=== PATIENT | female | born 1995 | race Caucasian/White ===

== ENCOUNTER → 2018-09-19 | Outpatient (CLI) | payer OTHER ==
--- NOTE | 2018-09-19 13:57 | MR ---
MR thoracic spine HISTORY: Pain Multiplanar multisequence imaging obtained through the thoracic spine No comparisons There is no evident spinal stenosis, disc herniation, or foraminal encroachment. There is a dextrosco liosis centered at the midthoracic spine. No evident paraspinal mass. Thoracic cord signal is normal aside from mild prominence of the central aqueduct noted in the midthoracic spine. Thoracic vertebral bodies show preserved height, alignment, and bone marrow signal. IMPRESSION: There is a scoliosis present. Mild prominence of the central aqueduct is likely normal va riant.
== END | disposition home or self-care (01) ==
LOC: RADMRIMAIN 09:15
PROVIDERS: ATTEND Internal Medicine
DX: M41.9 Scoliosis, unspecified (principal)
CPT/HCPCS: 72146

== ENCOUNTER 2020-06-06 15:51 | Emergency (ER) | payer OTHER ==
--- NOTE | 2020-06-06 16:11 | ED ---
Back Pain HPI - General Chief Complaint: Back Pain/Injury Stated Complaint: rib & back pain Time Seen by Provider: 06/06/20 16:11 Source: patient Limitations: no limitations - History of Present Illness Initial Comments: Patient is a 24-year-old female with history of scoliosis presenting to the emergency department with a chief complaint of back pain. Patient reports started approximately 3 days ago with gradual increase in severity. Patient states the pain is located in the right side of the back with intermittent radiation to the right flank region. Patient reports pain is alleviated at rest and exacerbated with left and right rotation or ambulation. Patient denies any urinary or vaginal symptoms. Patient states there is low probably for . Patient denies any direct trauma to the region. Denies saddle anesthesia, urinary retention with overflow incontinence or bowel incontinence. Patient denies any night sweats or chills. Denies any chest pain, shortness of breath, unilateral leg swelling, history of PE DVT, exogenous estrogen use. - Related Data Home Medications Medication Instructions Recorded Confirmed Ferrous Sulfate [Feosol] 325 mg PO DAILY 11/19/15 11/19/15 Ixf-[id number] Acid 1 each PO 11/19/15 11/19/15 [-U Capsule] Previous Rx's Medication Instructions Recorded Acetaminophen-Codeine 300-30mg 2 each PO Q6H PRN #30 tab 11/21/15 [Tylenol w/codeine #3] Ibuprofen [Motrin] 600 mg PO Q6HR PRN #30 tab 11/21/15 valACYclovir [Valtrex] 1,000 mg PO BID 7 Days tab 11/21/15 Cephalexin [Keflex] 500 mg PO Q6HR #40 cap 06/06/20 Allergies Allergy/AdvReac Type Severity Reaction Status Date / Time No Known Allergies Allergy Verified 11/19/15 15:48 Review of Systems ROS Statement: Those systems with pertinent positive or pertinent negative responses have been documented in the HPI. ROS Other: All systems not noted in ROS Statement are negative. Past Medical History Past Medical History: No Reported History History of Any Multi-Drug Resistant Organisms: None Reported Past Surgical History: No Surgical Hx Reported Past Psychological History: ADD/ADHD Smoking Status: Former smoker Past Alcohol Use History: None Reported Past Drug Use History: None Reported - Past Family History Father Family Medical History: No Reported History General Exam Limitations: no limitations General appearance: alert, in no apparent distress Head exam: Present: atraumatic, normocephalic, normal inspection Eye exam: Present: normal appearance, PERRL, EOMI Pupils: Present: normal accommodation ENT exam: Present: normal exam, normal oropharynx, mucous membranes moist, TM's normal bilaterally, normal external ear exam Neck exam: Present: normal inspection, full ROM. Absent: tenderness Respiratory exam: Present: normal lung sounds bilaterally. Absent: respiratory distress, wheezes Cardiovascular Exam: Present: regular rate, normal rhythm, normal heart sounds GI/Abdominal exam: Present: soft. Absent: distended, tenderness, guarding Extremities exam: Present: normal inspection, full ROM, normal capillary refill, other (Loss to all her radial pulses bilaterally.) Back exam: Present: normal inspection, full ROM, tenderness (Right-sided back tenderness), CVA tenderness (R), paraspinal tenderness. Absent: vertebral tenderness Neurological exam: Present: alert, oriented X3 Psychiatric exam: Present: normal affect, normal mood Skin exam: Present: warm, dry, intact, normal color Course Vital Signs 06/06/20 06/06/20 15:57 18:19 Temperature 98.6 F 100.8 F H Pulse Rate 98 101 H Respiratory 16 19 Rate Blood Pressure 120/79 129/70 O2 Sat by Pulse 100 100 Oximetry Medical Decision Making - Medical Decision Making Patient is 24-year-old female with history of scoliosis presenting to the emergency room with a chief complaint of back pain. On exam patient has right CVA tenderness but no urinary or vaginal symptoms. Patient appears to be exacerbated left rotation or ambulation. No cauda equina. No red flags. No nausea vomiting abdominal pain fevers or chills. UA shows no signs of but does reveal elevated leukocyte esterase and white blood cells suggesting urinary tract infection, most likely pyelonephritis. No nausea or vomiting. Patient will be started on Rocephin and will be discharged with a 10 day course of Keflex. PERC neg. Return parameters were thoroughly discussed patient was worsening agreeable. Case discussed with physician. - Lab Data Lab Results 06/06/20 06/06/20 Range/Units 16:45 16:45 Urine Color Yellow Urine Appearance Cloudy H (Clear) Urine pH 6.0 (5.0-8.0) Ur Specific [place] 1.030 (1.001-1.035) Urine Protein 2+ H (Negative) Urine Glucose (UA) Negative (Negative) Urine Ketones Negative (Negative) Urine Blood Small H (Negative) Urine Nitrite Negative (Negative) Urine Bilirubin Negative (Negative) Urine Urobilinogen 2.0 (<2.0) mg/dL Ur Leukocyte Esterase Moderate H (Negative) Urine RBC 2 (0-5) /hpf Urine WBC 42 H (0-5) /hpf Ur Squamous Epith Cells 4 (0-4) /hpf Urine Bacteria Many H (None) /hpf Hyaline Casts 1 (0-2) /lpf Urine Mucus Moderate H (None) /hpf Urine HCG, Qual Not Detected (Not Detectd) Disposition Clinical Impression: Urinary tract infection, Right-sided back pain Disposition: HOME SELF-CARE Condition: Stable Instructions (If sedation given, give patient instructions): Urinary Tract Infection in Women (DC) Additional Instructions: Take prescribed medication as directed. Follow with primary care. Return to emergency department if symptoms worsen. Prescriptions: Cephalexin [Keflex] 500 mg PO Q6HR #40 cap Is patient prescribed a controlled substance at d/c from ED?: No Referrals: Haydee Hampton MD [Primary Care Provider] - 1-2 days Time of Disposition: 17:33
[2020-06-06] MEDS ORDERED: KETOROLAC 30 MG/ML 1 ML VIAL IM STA (16:37)
[2020-06-06 17:10] LABS: Appearance,Urine Cloudy (Clear); Bacteria,Urine Many /hpf; Bilirubin,Urine Negative (Negative); Blood,Urine Small (Negative); Color,Urine Yellow; Glucose,Urine (UA) Negative (Negative); Hyaline Casts,Urine 1 /lpf (0-2); Ketones,Urine Negative (Negative); Leukocyte Esterase,Urine Moderate (Negative); Mucus,Urine Moderate /hpf; Nitrite,Urine Negative (Negative); Protein,Urine 2+ (Negative); RBC,Urine 2 /hpf (0-5); Squamous Epithelial Cell,Urine 4 /hpf (0-4); WBC,Urine 42 /hpf (0-5)
[2020-06-06] MEDS ORDERED: NITROFURANTOIN MONOHYD/M-CRYST 100 MG CAP PO STA (17:16)
[2020-06-06] MEDS ORDERED: CEPHALEXIN 500 MG CAP PO STA (17:17)
--- NOTE | 2020-06-06 17:30 | XR ---
EXAMINATION TYPE: XR ribs RT w pa chest xray DATE OF EXAM: 06/06/2020 COMPARISON: None HISTORY: Right-sided pain TECHNIQUE: Right ribs are examined in 2 views and supplemented with a frontal chest. FINDINGS: No pneumothorax is evident. No displaced rib fractures are evident. IMPRESSION: 1. Normal right ribs
[2020-06-06] MEDS ORDERED: cefTRIAXone 1,000 MG VIAL (IM USE) IM STA (17:52)
[2020-06-06] MEDS ORDERED: ACETAMINOPHEN TAB 500 MG TAB PO STA (18:09)
[2020-06-06 18:23] VITALS: BP 129/70; PULSE 101; RESP 19; TEMP 100.8
== END 2020-06-06 18:19 | disposition home or self-care (01) ==
LOC: EC 15:51
DX: N39.0 Urinary tract infection, site not specified (principal); R07.81 Pleurodynia; M41.9 Scoliosis, unspecified; Z87.891 Personal history of nicotine dependence
CPT/HCPCS: 81001; 81025; 87086; 71101; 96372 ×2; 99284; J0696; J1885; 87077; 87186

== ENCOUNTER 2022-01-30 15:47 | Inpatient (IN) | payer OTHER ==
[2022-01-30 17:02] LABS: Appearance,Urine Clear (Clear); Bilirubin,Urine Negative (Negative); Blood,Urine Negative (Negative); Color,Urine Yellow; Glucose,Urine (UA) Negative (Negative); Ketones,Urine 1+ (Negative); Leukocyte Esterase,Urine Negative (Negative); Nitrite,Urine Negative (Negative); Protein,Urine Negative (Negative); Specific Gravity,Urine 1.017 (1.001-1.035); Urobilinogen,Urine <2.0 mg/dL (<2.0)
[2022-01-30] MEDS ORDERED: SODIUM CHLORIDE 0.9% 1,000 ML IV STA (18:54)
[2022-01-30] MEDS ORDERED: KETOROLAC 15 MG/ML 1 ML VIAL IVP STA (18:55)
[2022-01-30] MEDS ORDERED: ONDANSETRON 4 MG/2 ML VIAL IVP STA (18:55)
--- NOTE | 2022-01-30 18:58 | ED ---
Abdominal Pain HPI - General Chief Complaint: Abdominal Pain Stated Complaint: Abd pain Time Seen by Provider: 01/30/22 18:40 Source: patient, RN notes reviewed Mode of arrival: ambulatory Limitations: no limitations - History of Present Illness Initial Comments: This is a pleasant 18-year-old female history of ovarian cyst as well as urinary tract infections. She denies any other significant past medical history. Patient is a nonsmoker, she does state that she faints. She occasionally smokes marijuana. No other illicit drugs. Denies chance of . Patient states she has an IUD. Patient presents today complaining of bilateral pelvic pain as well as right flank pain. This pain started last night. Patient states that it feels like she has a urinary tract infection. Patient has some increased urinary frequency. Pain radiates from the right kidney around the right flank patient is also complaining of some pain in the left pelvis. Patient states a few weeks ago she was diagnosed with an ovarian cyst on the left. Pain is burni ng/sharp with the aforementioned radiation. No alleviating factors. Exacerbated by palpation. Patient has nausea but no vomiting. - Related Data Home Medications Medication Instructions Recorded Confirmed No Known Home Medications 01/30/22 01/30/22 Allergies Allergy/AdvReac Type Severity Reaction Status Date / Time No Known Allergies Allergy Verified 01/30/22 20:42 Review of Systems ROS Statement: Those systems with pertinent positive or pertinent negative responses have been documented in the HPI. ROS Other: All systems not noted in ROS Statement are negative. Past Medical History Past Medical History: No Reported History Additional Past Medical History / Comment(s): cyst on ovary History of Any Multi-Drug Resistant Organisms: None Reported Past Surgical History: Section Past Psychological History: ADD/ADHD Smoking Status: Vaper Past Alcohol Use History: None Reported Past Drug Use History: Marijuana - Past Family History Father Family Medical History: No Reported History General Exam - General Exam Comments Initial Comments: Patient in no significant distress. Vital signs reviewed Limitations: no limitations General appearance: alert, in no apparent distress Head exam: Present: atraumatic, normocephalic, normal inspection Eye exam: Present: normal appearance, PERRL, EOMI. Absent: scleral icterus, conjunctival injection, periorbital swelling ENT exam: Present: normal exam, mucous membranes moist Neck exam: Present: normal inspection. Absent: tenderness, meningismus, lymphadenopathy Respiratory exam: Present: normal lung sounds bilaterally. Absent: respiratory distress, wheezes, rales, rhonchi, stridor, chest wall tenderness, accessory muscle use, decreased breath sounds, prolonged expiratory Cardiovascular Exam: Present: regular rate, normal rhythm, normal heart sounds. Absent: systolic murmur, diastolic murmur, rubs, gallop, clicks GI/Abdominal exam: Present: soft, tenderness (Patient has tenderness across the pelvis, most notably in the suprapubic and bilateral pelvic area. There is no guarding. No rebound. Mild right CVA tenderness), normal bowel sounds. Absent: distended, guarding, rebound, rigid, diminished bowel sounds, hyperac tive bowel sounds, hypoactive bowel sounds Extremities exam: Present: normal inspection, full ROM, normal capillary refill. Absent: tenderness, pedal edema, joint swelling, calf tenderness Back exam: Present: normal inspection, full ROM, CVA tenderness (R). Absent: CVA tenderness (L) Neurological exam: Present: alert, oriented X3, CN II-XII intact Psychiatric exam: Present: normal affect, normal mood Skin exam: Present: warm, dry, intact, normal color. Absent: rash Course Vital Signs 01/30/22 01/30/22 15:49 19:30 Temperature 97.7 F Pulse Rate 86 84 Respiratory 16 16 Rate Blood Pressure 134/84 154/69 O2 Sat by Pulse 100 97 Oximetry - Reevaluation(s) Reevaluation #1: 01/30/22 20:34 Medical record is reviewed Symptoms are mildly improved, patient's repeat abdominal examination reveals right lower quadrant tenderness. Computed tomography scan ordered. Patient is informed of results and questions answered Patient in no distress Medical Decision Making - Medical Decision Making Patient has minimal elevation of white blood cell count with a hint of a mild left shift. Repeat abdominal examination reveals right lower quadrant tenderness. Urine was clear. Pelvic ultrasound was normal. Computed tomography scan order to rule out appendicitis. Case discussed in detail with the on-call surgeon, Dr. Bennett who agrees to admit the patient, nothing by mouth, he will see her in the morning. Patient's hemoglobin is stable. Patient treated with Levaquin and metronidazole. - Lab Data Result diagrams: 01/30/22 19:26 01/30/22 19:26 Lab Results 01/30/22 01/30/22 01/30/22 Range/Units 16:49 16:49 19:26 WBC 11.5 H (3.8-10.6) k/uL RBC 4.50 (3.80-5.40) m/uL Hgb 13.6 (11.4-16.0) gm/dL Hct 40.7 (34.0-46.0) % MCV 90.5 (80.0-100.0) fL MCH 30.3 (25.0-35.0) pg MCHC 33.5 (31.0-37.0) g/dL RDW 12.8 (11.5-15.5) % Plt Count 229 (150-450) k/uL MPV 7.4 Neutrophils % 78 % Lymphocytes % 15 % Monocytes % 4 % Eosinophils % 2 % Basophils % 0 % Neutrophils # 9.0 H (1.3-7.7) k/uL Lymphocytes # 1.7 (1.0-4.8) k/uL Monocytes # 0.4 (0-1.0) k/uL Eosinophils # 0.2 (0-0.7) k/uL Basophils # 0.0 (0-0.2) k/uL Sodium (137-145) mmol/L Potassium (3.5-5.1) mmol/L Chloride (98-107) mmol/L Carbon Dioxide (22-30) mmol/L Anion Gap mmol/L BUN (7-17) mg/dL Creatinine (0.52-1.04) mg/dL Est GFR (CKD-EPI)AfAm (>60 ml/min/1.73 sqM) Est GFR (CKD-EPI)NonAf (>60 ml/min/1.73 sqM) Glucose (74-99) mg/dL Calcium (8.4-10.2) mg/dL Total Bilirubin (0.2-1.3) mg/dL AST (14-36) U/L ALT (4-34) U/L Alkaline Phosphatase (38-126) U/L Total Protein (6.3-8.2) g/dL Albumin (3.5-5.0) g/dL Lipase (23-300) U/L Urine Color Yellow Urine Appearance Clear (Clear) Urine pH 6.0 (5.0-8.0) Ur Specific [place] 1.017 (1.001-1.035) Urine Protein Negative (Negative) Urine Glucose (UA) Negative (Negative) Urine Ketones 1+ H (Negative) Urine Blood Negative (Negative) Urine Nitrite Negative (Negative) Urine Bilirubin Negative (Negative) Urine Urobilinogen <2.0 (<2.0) mg/dL Ur Leukocyte Esterase Negative (Negative) Urine HCG, Qual Not Detected (Not Detectd) 01/30/22 Range/Units 19:26 WBC (3.8-10.6) k/uL RBC (3.80-5.40) m/uL Hgb (11.4-16.0) gm/dL Hct (34.0-46.0) % MCV (80.0-100.0) fL MCH (25.0-35.0) pg MCHC (31.0-37.0) g/dL RDW (11.5-15.5) % Plt Count (150-450) k/uL MPV Neutrophils % % Lymphocytes % % Monocytes % % Eosinophils % % Basophils % % Neutrophils # (1.3-7.7) k/uL Lymphocytes # (1.0-4.8) k/uL Monocytes # (0-1.0) k/uL Eosinophils # (0-0.7) k/uL Basophils # (0-0.2) k/uL Sodium 136 L (137-145) mmol/L Potassium 4.0 (3.5-5.1) mmol/L Chloride 101 (98-107) mmol/L Carbon Dioxide 25 (22-30) mmol/L Anion Gap 10 mmol/L BUN 11 (7-17) mg/dL Creatinine 0.73 (0.52-1.04) mg/dL Est GFR (CKD-EPI)AfAm >90 (>60 ml/min/1.73 sqM) Est GFR (CKD-EPI)NonAf >90 (>60 ml/min/1.73 sqM) Glucose 100 H (74-99) mg/dL Calcium 9.7 (8.4-10.2) mg/dL Total Bilirubin 0.6 (0.2-1.3) mg/dL AST 23 (14-36) U/L ALT 18 (4-34) U/L Alkaline Phosphatase 65 (38-126) U/L Total Protein 7.7 (6.3-8.2) g/dL Albumin 4.5 (3.5-5.0) g/dL Lipase 44 (23-300) U/L Urine Color Urine Appearance (Clear) Urine pH (5.0-8.0) Ur Specific [place] (1.001-1.035) Urine Protein (Negative) Urine Glucose (UA) (Negative) Urine Ketones (Negative) Urine Blood (Negative) Urine Nitrite (Negative) Urine Bilirubin (Negative) Urine Urobilinogen (<2.0) mg/dL Ur Leukocyte Esterase (Negative) Urine HCG, Qual (Not Detectd) - Radiology Data Radiology results: report reviewed (Computed tomography scan shows evidence of diverticulitis near the hepatic flexure with possible abscess), image reviewed Disposition Clinical Impression: Diverticulitis large intestine, Diverticulitis of intestine with abscess Disposition: ADMITTED IP TO THIS HOSP Condition: Stable Is patient prescribed a controlled substance at d/c from ED?: No Referrals: None,Stated [Primary Care Provider] - 1-2 days Time of Disposition: 21:58
[2022-01-30 19:35] LABS: Basophils % (A) 0 %; Eosinophils # (A) 0.2 k/uL (0-0.7); Eosinophils % (A) 2 %; HCT 40.7 % (34.0-46.0); HGB 13.6 gm/dL (11.4-16.0); Lymphocytes # (A) 1.7 k/uL (1.0-4.8); Lymphocytes % (A) 15 %; MCH 30.3 pg (25.0-35.0); MCHC 33.5 g/dL (31.0-37.0); MCV 90.5 fL (80.0-100.0); Mean Platelet Volume 7.4; Monocytes # (A) 0.4 k/uL (0-1.0); Monocytes % (A) 4 %; Neutrophils % (A) 78 %; Platelet Count 229 k/uL (150-450); RDW 12.8 % (11.5-15.5); WBC 11.5 k/uL (3.8-10.6)
[2022-01-30 19:45] LABS: ALT 18 U/L (4-34); AST 23 U/L (14-36); African American GFR (CKD) >90 (>60 ml/min/1.73 sqM); Albumin 4.5 g/dL (3.5-5.0); Alkaline Phosphatase 65 U/L (38-126); Anion Gap 10 mmol/L; Blood Urea Nitrogen 11 mg/dL (7-17); Calcium 9.7 mg/dL (8.4-10.2); Carbon Dioxide 25 mmol/L (22-30); Chloride 101 mmol/L (98-107); Glucose 100 mg/dL (74-99); Lipase 44 U/L (23-300); Non-African American GFR(CKD) >90 (>60 ml/min/1.73 sqM); Sodium 136 mmol/L (137-145); Total Bilirubin 0.6 mg/dL (0.2-1.3); Total Protein 7.7 g/dL (6.3-8.2)
--- NOTE | 2022-01-30 20:23 | US ---
EXAMINATION TYPE: US pelvic complete DATE OF EXAM: 01/30/2022 COMPARISON: NONE CLINICAL HISTORY: Pelvic pain. Patient states having generalized abdominal pain and right flank pain. TECHNIQUE: Transabdominal (TA). Date of LMP: Patient is unaware of LMP EXAM MEASUREMENTS: Uterus: 7.7 x 4.0 x 4.7 cm Endometrial Stripe: 0.46 cm Right Ovary: 2.7 x 2.0 x 2.1 cm Left Ovary: 2.4 x 1.5 x 2.4 cm 1. Uterus: Anteverted Appears wnl; IUD noted 2. Endometrium: wnl 3. Right Ovary: wnl 4. Left Ovary: wnl Spectral, color and waveform doppler imaging shows good arterial and venous flow within the ovaries ; there is no evidence for ovarian torsion. 5. Bilateral Adnexa: wnl 6. Posterior cul-de-sac: wnl IMPRESSION: IUD is noted in the uterine fundus. No endometrial thickening. Negative exam. No evidence of ovarian torsion.
--- NOTE | 2022-01-30 21:43 | CT ---
EXAMINATION TYPE: CT abdomen pelvis w con DATE OF EXAM: 01/30/2022 COMPARISON: None HISTORY: right sided abdominal pain, hx of ovarian cysts CT DLP: 722.9 mGycm Automated exposure control for dose reduction was used. CONTRAST: Performed with IV Contrast, patient injected with 100 mL of Isovue 300. Images obtained from the diaphragm to the floor of the pelvis with IV contrast. Lung bases are clear. There is no pleural effusion. Heart size is normal. There is no pericardial eff usion. Liver spleen and stomach pancreas appear intact. The bile ducts are not dilated. Gallbladder a ppears normal. There is no adrenal mass. Kidneys show satisfactory contrast opacification. There is no hydronephrosi s. Delayed images show normal renal excretion. Ureters are not dilated. Bladder distends smoothly. Th ere is small amount of air in the bladder probably from catheterization. Uterus is anteverted with IU D noted in the uterine fundus. There is small amount of free fluid in the pelvis. There are some prominent veins in the pelvis on th e left side. There is some free fluid in the right paracolic gutter. Appendix is medial and inferior and appears n ormal. There are extensive inflammatory changes in the right lateral mid abdomen at the hepatic flexu re of the colon. There is wall thickening and fluid density. There is some free fluid in the right pa racolic gutter. There appears to be a large diverticulum on the posterior wall measuring 10 mm and th is could be diverticulitis with rupture and developing abscess. There is no evidence of a bowel obstruction. There is no evidence of free air. The lumbar vertebra have normal alignment. Posterior elements are intact. There is no compression fra cture. Bony pelvis is intact. IMPRESSION: Extensive inflammatory changes involving the hepatic flexure of the colon with probable diverticuliti s and fluid accumulation in the paracolic gutter and also in the pelvis. Abscess is possible. Normal appendix. Mild pelvic varicose veins noted.
[2022-01-30] MEDS ORDERED: LEVOFLOXACIN 750MG-D5W PMX 750 MG in DEXTROSE/WATER 1 150ML.BAG IVPB STA (21:49)
[2022-01-30] MEDS ORDERED: metroNIDAZOLE-NS PMX 500 MG in SALINE 1 100ML.BAG IVPB STA (21:50)
[2022-01-30] MEDS ORDERED: MORPHINE SULFATE 4 MG/ML SYRINGE IV STA (21:57)
[2022-01-30] MEDS: SODIUM CHLORIDE 0.9% 1,000 ML IV SCH (22:19)
[2022-01-30] MEDS ORDERED: ONDANSETRON 4 MG/2 ML VIAL IVP PRN (22:36)
[2022-01-30] MEDS ORDERED: MORPHINE SULFATE 4 MG/ML SYRINGE IV PRN (22:36)
[2022-01-30] MEDS ORDERED: NALOXONE 0.4 MG/ML 1 ML VIAL IV PRN (22:36)
[2022-01-31] MEDS: SODIUM CHLORIDE 0.9% 1,000 ML IV SCH ×3 (04:12→20:13)
[2022-01-31] MEDS: metroNIDAZOLE-NS PMX 500 MG in SALINE 1 100ML.BAG IVPB SCH ×4 (04:13→21:26)
[2022-01-31 05:26] LABS: ALT 13 U/L (4-34); AST 18 U/L (14-36); African American GFR (CKD) >90 (>60 ml/min/1.73 sqM); Albumin 3.6 g/dL (3.5-5.0); Alkaline Phosphatase 59 U/L (38-126); Anion Gap 7 mmol/L; Blood Urea Nitrogen 8 mg/dL (7-17); Calcium 8.1 mg/dL (8.4-10.2); Carbon Dioxide 21 mmol/L (22-30); Chloride 106 mmol/L (98-107); Glucose 87 mg/dL (74-99); Non-African American GFR(CKD) >90 (>60 ml/min/1.73 sqM); Potassium 3.8 mmol/L (3.5-5.1); Sodium 134 mmol/L (137-145); Total Bilirubin 0.7 mg/dL (0.2-1.3); Total Protein 6.3 g/dL (6.3-8.2)
[2022-01-31 05:45] LABS: Basophils % (A) 0 %; Eosinophils # (A) 0.2 k/uL (0-0.7); Eosinophils % (A) 2 %; HCT 37.6 % (34.0-46.0); HGB 12.5 gm/dL (11.4-16.0); Lymphocytes # (A) 1.9 k/uL (1.0-4.8); Lymphocytes % (A) 21 %; MCH 30.4 pg (25.0-35.0); MCHC 33.2 g/dL (31.0-37.0); MCV 91.6 fL (80.0-100.0); Mean Platelet Volume 7.9; Monocytes # (A) 0.6 k/uL (0-1.0); Monocytes % (A) 6 %; Neutrophils # (A) 6.3 k/uL (1.3-7.7); Neutrophils % (A) 68 %; Platelet Count 183 k/uL (150-450); RBC 4.11 m/uL (3.80-5.40); RDW 12.3 % (11.5-15.5); WBC 9.2 k/uL (3.8-10.6)
--- NOTE | 2022-01-31 11:47 | P.GSHP ---
History of Present Illness H&P Date: 01/31/22 CHIEF COMPLAINT: Abdominal pain HISTORY OF PRESENT ILLNESS: This is a 18-year-old female who presents to the hospital with complaints of right-sided and lower mid abdominal pain. She reports that the pain came on suddenly yesterday. She reports the pain was 7 out of 10. Currently rating pain about 3 out of 10. She had been having dry heaves and nausea with cold sweats. Her bowel movements have been soft. She does have issues with constipation. She denies any fever. She does have prior history of ovarian cyst and kidney infections. Past surgical history includes . Patient to the hospital with diverticulitis with possible abscess. Currently on IV antibiotics. Patient seen and examined with Dr. figueroa PAST MEDICAL HISTORY: Left ovarian cyst, UTI PAST SURGICAL HISTORY: MEDICATIONS: See list. ALLERGIES: See list. SOCIAL HISTORY: No illicit drug use. Vaping REVIEW OF SYSTEMS: CONSTITUTIONAL: Denies fever or chills. HEENT: Denies blurred vision, vision changes, or eye pain. Denies hemoptysis CARDIOVASCULAR: Denies chest pain or pressure. RESPIRATORY: No shortness of breath. GASTROINTESTINAL: See HPI for pertinent findings HEMATOLOGIC: Denies bleeding disorders. GENITOURINARY: Denies any blood in urine or increased urinary frequency. SKIN: Denies pruitis. Denies rash. PHYSICAL EXAM: VITAL SIGNS: Reviewed GENERAL: Well-developed in no acute distress. HEENT: No sclera icterus. Extraocular movements grossly intact. Moist buccal mucosa. Head is atraumatic, normocephalic. No nasal drainage. ABDOMEN: Soft. Nondistended. Tenderness to palpation of the mid pelvic area and lower right side of abdomen NEUROLOGIC: Alert and oriented. Cranial nerves II through XII grossly intact. LABORATORY DATA: WBC 11.5 down to 9.2 hemoglobin 12.5 platelets 183 Sodium 134 potassium 3.8 creatinine 0.75 Lactic acid is 0.6 LFTs and lipase normal Urinalysis negative for infection Trichomonas negative IMAGING: Computed tomography scan abdomen and pelvis with IV contrast showed extensive inflammatory changes involving the hepatic flexure of the colon and probable diverticulitis and fluid accumulation in the paracolic gutter and pelvis. Ab scess is possible. Normal appendix. Mild pelvic varicose veins noted. Pelvic ultrasound IUD noted in the uterine fundus. No atrial thickening. Negative exam. No evidence of ovarian torsion. ASSESSMENT: 1. Abdominal pain 2. Diverticulitis with possible abscess 3. Inflammatory changes involving the hepatic flexure of the colon PLAN: -Start clear liquids -Continue IV antibiotics -Continue IV fluids -Continue pain medication as needed -Consult medicine service for medical management -DVT prophylaxis subcu heparin Physician Product Planner note has been reviewed by physician. Signing provider agrees with the documented findings, assessment, and plan of care. Past Medical History Past Medical History: No Reported History Additional Past Medical History / Comment(s): Recently diagnosed with L ovarian cyst, UTIs, kidney infections, occasional light headedness, chronic pain/back, neck and shoulders, hips. History of Any Multi-Drug Resistant Organisms: None Reported Past Surgical History: Section Additional Past Surgical History / Comment(s): IUD Past Anesthesia/Blood Transfusion Reactions: No Reported Reaction Smoking Status: Former smoker, Vaper - Past Family History Mother Family Medical History: No Reported History Additional Family Medical History / Comment(s): Mother is healthy Father History Unknown: Yes Family Medical History: No Reported History Medications and Allergies Home Medications Medication Instructions Recorded Confirmed Type No Known Home Medications 01/30/22 01/30/22 History Allergies Allergy/AdvReac Type Severity Reaction Status Date / Time No Known Allergies Allergy Verified 01/30/22 20:42 Surgical - Exam Vital Signs Temp Pulse Resp BP Pulse Ox 97.7 F 86 16 134/84 100 01/30/22 15:49 01/30/22 15:49 01/30/22 15:49 01/30/22 15:49 01/30/22 15:49 Results - Labs 01/31/22 04:35 01/31/22 04:35 Abnormal Lab Results - Last 24 Hours (Table) 01/30/22 01/30/22 01/30/22 Range/Units 16:49 19:26 19:26 WBC 11.5 H (3.8-10.6) k/uL Neutrophils # 9.0 H (1.3-7.7) k/uL Sodium 136 L (137-145) mmol/L Carbon Dioxide (22-30) mmol/L Glucose 100 H (74-99) mg/dL Plasma Lactic Acid Zane (0.7-2.0) mmol/L Calcium (8.4-10.2) mg/dL Urine Ketones 1+ H (Negative) 01/30/22 01/31/22 Range/Units 20:23 04:35 WBC (3.8-10.6) k/uL Neutrophils # (1.3-7.7) k/uL Sodium 134 L (137-145) mmol/L Carbon Dioxide 21 L (22-30) mmol/L Glucose (74-99) mg/dL Plasma Lactic Acid Zane 0.6 L (0.7-2.0) mmol/L Calcium 8.1 L (8.4-10.2) mg/dL Urine Ketones (Negative) Diabetes panel 01/30/22 01/31/22 Range/Units 19:26 04:35 Sodium 136 L 134 L (137-145) mmol/L Potassium 4.0 3.8 (3.5-5.1) mmol/L Chloride 101 106 (98-107) mmol/L Carbon Dioxide 25 21 L (22-30) mmol/L BUN 11 8 (7-17) mg/dL Creatinine 0.73 0.75 (0.52-1.04) mg/dL Glucose 100 H 87 (74-99) mg/dL Calcium 9.7 8.1 L (8.4-10.2) mg/dL AST 23 18 (14-36) U/L ALT 18 13 (4-34) U/L Alkaline Phosphatase 65 59 (38-126) U/L Total Protein 7.7 6.3 (6.3-8.2) g/dL Albumin 4.5 3.6 (3.5-5.0) g/dL Calcium panel 01/30/22 01/31/22 Range/Units 19:26 04:35 Calcium 9.7 8.1 L (8.4-10.2) mg/dL Albumin 4.5 3.6 (3.5-5.0) g/dL Pituitary panel 01/30/22 01/31/22 Range/Units 19:26 04:35 Sodium 136 L 134 L (137-145) mmol/L Potassium 4.0 3.8 (3.5-5.1) mmol/L Chloride 101 106 (98-107) mmol/L Carbon Dioxide 25 21 L (22-30) mmol/L BUN 11 8 (7-17) mg/dL Creatinine 0.73 0.75 (0.52-1.04) mg/dL Glucose 100 H 87 (74-99) mg/dL Calcium 9.7 8.1 L (8.4-10.2) mg/dL Adrenal panel 01/30/22 01/31/22 Range/Units 19:26 04:35 Sodium 136 L 134 L (137-145) mmol/L Potassium 4.0 3.8 (3.5-5.1) mmol/L Chloride 101 106 (98-107) mmol/L Carbon Dioxide 25 21 L (22-30) mmol/L BUN 11 8 (7-17) mg/dL Creatinine 0.73 0.75 (0.52-1.04) mg/dL Glucose 100 H 87 (74-99) mg/dL Calcium 9.7 8.1 L (8.4-10.2) mg/dL Total Bilirubin 0.6 0.7 (0.2-1.3) mg/dL AST 23 18 (14-36) U/L ALT 18 13 (4-34) U/L Alkaline Phosphatase 65 59 (38-126) U/L Total Protein 7.7 6.3 (6.3-8.2) g/dL Albumin 4.5 3.6 (3.5-5.0) g/dL
--- NOTE | 2022-01-31 15:08 | P.CONS ---
History of Present Illness - Reason for Consult Diverticulitis - History of Present Illness Patient is a pleasant 26-year-old female came in with complaints of a right upper and lower quadrant abdominal pain some stress in severity along with the nausea denied any diarrhea does have issues with occasional constipation. Patient denied any fever chills. Patient had a CT of the abdomen which showed colitis/diverticulitis at the hepatic flexure with the possibility of abscesses that cannot be ruled out because of which patient was admitted to general surgery service patient was started on antibiotics. Patient does have leukocytosis. REVIEW OF SYSTEMS: CONSTITUTIONAL: No fever, no malaise, no fatigue. HEENT: No recent visual problems or hearing problems. Denied any sore throat. CARDIOVASCULAR: No chest pain, orthopnea, PND, no palpitations, no syncope. PULMONARY: No shortness of breath, no cough, no hemoptysis. GASTROINTESTINAL: As mentioned in HPI NEUROLOGICAL: No headaches, no weakness, no numbness. HEMATOLOGICAL: Denies any bleeding or petechiae. GENITOURINARY: Denies any burning micturition, frequency, or urgency. MUSCULOSKELETAL/RHEUMATOLOGICAL: Denies any joint pain, swelling, or any muscle pain. ENDOCRINE: Denies any polyuria or polydipsia. The rest of the 14-point review of systems is negative. PHYSICAL EXAMINATION: GENERAL: The patient is alert and oriented x3, not in any acute distress. Well developed, well nourished. HEENT: Pupils are round and equally reacting to light. EOMI. No scleral icterus. No conjunctival pallor. Normocephalic, atraumatic. No pharyngeal erythema. No thyromegaly. CARDIOVASCULAR: S1 and S2 present. No murmurs, rubs, or gallops. PULMONARY: Chest is clear to auscultation, no wheezing or crackles. ABDOMEN: Tenderness in the right lower quadrant normoactive bowel sounds. No palpable organomegaly. MUSCULOSKELETAL: No joint swelling or deformity. EXTREMITIES: No cyanosis, clubbing, or pedal edema. NEUROLOGICAL: Gross neurological examination did not reveal any focal deficits. SKIN: No rashes. Assessment and plan -Diverticulitis with the low possibility of abscess in the hepatic flexure area and continue with antibiotics. Patient will be monitored. Patient will be started on Rocephin patient is already on metronidazole. Patient will be started on Toradol as well along with the GI prophylaxis to avoid excess op iates. -History of depression -Marijuana use and previous history of smoking- Mild hypervolemic hyponatremia expected improved with IV fluids she is receiving DVT prophylaxis: Early ambulation Past Medical History Past Medical History: No Reported History Additional Past Medical History / Comment(s): Recently diagnosed with L ovarian cyst, UTIs, kidney infections, occasional light headedness, chronic pain/back, neck and shoulders, hips. History of Any Multi-Drug Resistant Organisms: None Reported Past Surgical History: Section Additional Past Surgical History / Comment(s): IUD Past Anesthesia/Blood Transfusion Reactions: No Reported Reaction Smoking Status: Former smoker, Vaper - Past Family History Mother Family Medical History: No Reported History Additional Family Medical History / Comment(s): Mother is healthy Father History Unknown: Yes Family Medical History: No Reported History Medications and Allergies Home Medications Medication Instructions Recorded Confirmed Type No Known Home Medications 01/30/22 01/30/22 History Allergies Allergy/AdvReac Type Severity Reaction Status Date / Time No Known Allergies Allergy Verified 01/30/22 20:42 Physical Exam Vitals: Vital Signs Temp Pulse Pulse Resp BP BP BP 01/31/22 14:55 98.0 F 69 18 117/77 01/31/22 10:56 98.5 F 72 18 129/70 01/31/22 08:00 18 01/31/22 06:58 18 01/31/22 06:00 98.5 F 83 18 113/56 01/31/22 02:00 18 01/31/22 01:00 74 16 122/81 01/31/22 00:00 76 16 124/87 01/30/22 22:00 78 18 133/75 01/30/22 19:30 84 16 154/69 01/30/22 15:49 97.7 F 86 16 134/84 Pulse Ox 01/31/22 14:55 100 01/31/22 10:56 98 01/31/22 08:00 01/31/22 06:58 01/31/22 06:00 96 01/31/22 02:00 01/31/22 01:00 99 01/31/22 00:00 99 01/30/22 22:00 100 01/30/22 19:30 97 01/30/22 15:49 100 Intake and Output 01/30/22 01/31/22 01/31/22 22:59 06:59 14:59 Intake Total 750 Balance 750 Intake: Intake, IV Titration 750 Amount Sodium Chloride 0.9% 1, 650 000 ml @ 130 mls/hr IV . Q7H42M RAJESH Rx#:[id number] metroNIDAZOLE-NS PMX 500 100 mg In Saline 1 100ml.bag @ 100 mls/hr IVPB Q6H RAJESH Rx#:[id number] Other: Weight 68.039 kg 68.039 kg Results CBC & Chem 7: 01/31/22 04:35 01/31/22 04:35 Labs: Abnormal Lab Results - Last 24 Hours (Table) 01/30/22 01/30/22 01/30/22 Range/Units 16:49 19:26 19:26 WBC 11.5 H (3.8-10.6) k/uL Neutrophils # 9.0 H (1.3-7.7) k/uL Sodium 136 L (137-145) mmol/L Carbon Dioxide (22-30) mmol/L Glucose 100 H (74-99) mg/dL Plasma Lactic Acid Zane (0.7-2.0) mmol/L Calcium (8.4-10.2) mg/dL Urine Ketones 1+ H (Negative) 01/30/22 01/31/22 Range/Units 20:23 04:35 WBC (3.8-10.6) k/uL Neutrophils # (1.3-7.7) k/uL Sodium 134 L (137-145) mmol/L Carbon Dioxide 21 L (22-30) mmol/L Glucose (74-99) mg/dL Plasma Lactic Acid Zane 0.6 L (0.7-2.0) mmol/L Calcium 8.1 L (8.4-10.2) mg/dL Urine Ketones (Negative)
[2022-01-31] MEDS: KETOROLAC 30 MG/ML 1 ML VIAL IVP PRN (15:38)
[2022-01-31] MEDS: PANTOPRAZOLE 40 MG/10 ML VIAL IVP SCH (15:38)
[2022-01-31] MEDS: HEPARIN SODIUM,PORCINE/PF 5,000 UNIT/0.5 ML SYRINGE SQ SCH (20:13)
[2022-02-01] MEDS: metroNIDAZOLE-NS PMX 500 MG in SALINE 1 100ML.BAG IVPB SCH ×4 (03:12→21:00)
[2022-02-01] MEDS: SODIUM CHLORIDE 0.9% 1,000 ML IV SCH ×2 (06:21→17:16)
[2022-02-01] MEDS: KETOROLAC 30 MG/ML 1 ML VIAL IVP PRN ×2 (06:24→20:52)
[2022-02-01] MEDS: HEPARIN SODIUM,PORCINE/PF 5,000 UNIT/0.5 ML SYRINGE SQ SCH ×2 (08:29→20:51)
[2022-02-01] MEDS: PANTOPRAZOLE 40 MG/10 ML VIAL IVP SCH (08:29)
[2022-02-01 09:15] LABS: Basophils # (A) 0.03 X 10*3/uL (0.00-0.10); Basophils % (A) 0.5 %; Eosinophils # (A) 0 X 10*3/uL (0.04-0.35); Eosinophils % (A) 0 %; HCT 32.5 % (37.2-46.3); HGB 10.7 g/dL (12.0-15.0); Immature Grans, Automated 0.2 %; Lymphocytes # (A) 1.93 X 10*3/uL (0.90-5.00); Lymphocytes % (A) 35.1 %; MCH 29.6 pg (27.0-32.0); MCHC 32.9 g/dL (32.0-37.0); Mean Platelet Volume 10.5 fL (9.5-12.2); Monocytes # (A) 0.55 X 10*3/uL (0.20-1.00); NRBC Per 100 WBC 0 /100 WBCS (0.0-0.0); Neutrophils # (A) 2.98 X 10*3/uL (1.80-7.70); Neutrophils % (A) 54.2 %; Platelet Count 121 X 10*3/uL (140-440); RBC 3.61 X 10*6/uL (4.10-5.20); RDW 12.4 % (11.5-14.5)
[2022-02-01 09:27] LABS: African American GFR (CKD) 136.7 (60.0-200.0); Anion Gap 10.5 mmol/L (10.00-18.00); BUN/Creat Ratio 8.29 Ratio (12.00-20.00); Blood Urea Nitrogen 5.8 mg/dL (9.0-27.0); Calcium 8.2 mg/dL (8.7-10.3); Carbon Dioxide 19.5 mmol/L (20.0-27.5); Non-African American GFR(CKD) 117.9 (60.0-200.0); Potassium 3.8 mmol/L (3.5-5.5)
--- NOTE | 2022-02-01 15:11 | P.PN ---
Subjective Progress Note Date: 02/01/22 CHIEF COMPLAINT: Diverticulitis with possible abscess HISTORY OF PRESENT ILLNESS: Patient reporting improvement in her pain. She is reporting her pain about a 3 out of 10. The pain was 8 out of 10 on admission. She did have an episode of vomiting last night and has had some diarrhea. White count is normal at 5.5. She is tolerating clear liquids. Afebrile. PHYSICAL EXAM: VITAL SIGNS: Reviewed. GENERAL: Well-developed in no acute distress. HEENT: No sclera icterus. Extraocular movements grossly intact. Moist buccal mucosa. Head is atraumatic, normocephalic. ABDOMEN: Soft. Nondistended. Tenderness with palpation in the right upper abdomen NEUROLOGIC: Alert and oriented. Cranial nerves II through XII grossly intact. ASSESSMENT: 1. Diverticulitis with possible abscess and inflammatory changes of the hepatic flexure of colon PLAN: -Advance diet to full liquids -Continue antibiotics -Continue pain medication as needed -Possible discharge tomorrow Physician Automotive Internet Sales Manager note has been reviewed by physician. Signing provider agrees with the documented findings, assessment, and plan of care. Objective - Vital Signs Vital signs: Vital Signs Temp 97.6 F 02/01/22 14:32 Pulse 72 02/01/22 14:32 Resp 16 02/01/22 14:32 BP 154/86 02/01/22 14:32 Pulse Ox 98 02/01/22 14:32 Intake & Output 01/31/22 02/01/22 02/01/22 18:59 06:59 18:59 Intake Total 240 120 Output Total 1 Balance 240 -1 120 Weight 68.039 kg Intake: Oral 240 120 Output: Emesis 1 Other: # Voids 2 1 # Bowel Movements 1 - Labs CBC & Chem 7: 02/01/22 05:38 02/01/22 05:38 Labs: Abnormal Lab Results - Last 24 Hours (Table) 02/01/22 02/01/22 Range/Units 05:38 05:38 RBC 3.61 L (4.10-5.20) X 10*6/uL Hgb 10.7 L (12.0-15.0) g/dL Hct 32.5 L (37.2-46.3) % Plt Count 121 L (140-440) X 10*3/uL Eosinophils # 0 L (0.04-0.35) X 10*3/uL Carbon Dioxide 19.5 L (20.0-27.5) mmol/L BUN 5.8 L (9.0-27.0) mg/dL BUN/Creatinine Ratio 8.29 L (12.00-20.00) Ratio Calcium 8.2 L (8.7-10.3) mg/dL Microbiology - Last 24 Hours (Table) 01/30/22 20:23 Blood Culture - Preliminary Blood No Growth after 24 hours
--- NOTE | 2022-02-01 16:13 | P.PN ---
Subjective Progress Note Date: 02/01/22 - Reason for Consult Diverticulitis - History of Present Illness Patient is a pleasant 26-year-old female came in with complaints of a right upper and lower quadrant abdominal pain some stress in severity along with the nausea denied any diarrhea does have issues with occasional constipation. Patient denied any fever chills. Patient had a CT of the abdomen which showed colitis/diverticulitis at the hepatic flexure with the possibility of abscesses that cannot be ruled out because of which patient was admitted to general surgery service patient was started on antibiotics. Patient does have leukocytosis. 02/01/2022 Patient is seen in follow up today and reports to some mild improvement in abdominal pain. Patient has tolerated clear liquid diet and being advanced to full liquid per surgery. Patient WBC improved at 5.5 and other labs within n ormal limits. Patient continues on gentle IV hydration and also continues with IV antibiotics. Patient encouraged to increase activity as tolerated. REVIEW OF SYSTEMS: CONSTITUTIONAL: No fever, no malaise, no fatigue. CARDIOVASCULAR: No chest pain, orthopnea, PND, no palpitations, no syncope. PULMONARY: No shortness of breath, no cough, no hemoptysis. GASTROINTESTINAL: As mentioned in HPI NEUROLOGICAL: No headaches, no weakness, no numbness. GENITOURINARY: Denies any burning micturition, frequency, or urgency. MUSCULOSKELETAL/RHEUMATOLOGICAL: Denies any joint pain, swelling, or any muscle pain. PHYSICAL EXAMINATION: GENERAL: The patient is alert and oriented x3, not in any acute distress. Well developed, well nourished. HEENT: Pupils are round and equally reacting to light. EOMI. No scleral icterus. No conjunctival pallor. Normocephalic, atraumatic. No pharyngeal erythema. No thyromegaly. CARDIOVASCULAR: S1 and S2 present. No murmurs, rubs, or gallops. PULMONARY: Chest is clear to auscultation, no wheezing or crackles. ABDOMEN: Tenderness in the right lower quadrant normoactive bowel sounds. No palpable organomegaly. MUSCULOSKELETAL: No joint swelling or deformity. EXTREMITIES: No cyanosis, clubbing, or pedal edema. NEUROLOGICAL: Gross neurological examination did not reveal any focal deficits. SKIN: No rashes. Assessment and plan -Diverticulitis with the low possibility of abscess in the hepatic flexure area and continue with antibiotics. Patient will be monitored. Patient continues on Rocephin and metronidazole. continue GI prophylaxis and avoid excess opiates. Tylenol or toradol. -History of depression -Marijuana use and previous history of smoking -Mild hypervolemic hyponatremia, improving with IV fluids -DVT prophylaxis: Early ambulation -full code Plan: Continue IV antibiotics and pain management per primary service. Encouraged increased activity as tolerated. Patient being advanced to full liquid diet. Recommend repeat labs in the am. Will continue to follow along with surgery during hospitalization. Thank you for this consultation. The impression and plan of care has been dictated by Tressa Lopez, nurse practitioner as directed. MD Maribell I have performed a history and examination and MDM of this patient, discussed the same with the dictator, and agree with the dictator's assessment and plan a s written ,documented as a scribe. Based on total visit time, I have performed more than 50% of the visit. Number of minutes spent on the visit, 10 minutes. Any additional findings or plans will be noted. Objective - Vital Signs Vital signs: Vital Signs Temp 98.3 F 02/01/22 08:34 Pulse 59 L 02/01/22 08:34 Resp 20 02/01/22 08:34 BP 162/97 02/01/22 08:34 Pulse Ox 100 02/01/22 08:34 Intake & Output 01/31/22 02/01/22 02/01/22 18:59 06:59 18:59 Intake Total 240 Output Total 1 Balance 240 -1 Weight 68.039 kg Intake: Oral 240 Output: Emesis 1 Other: # Voids 2 # Bowel Movements 1 - Labs CBC & Chem 7: 02/01/22 05:38 02/01/22 05:38 Labs: Microbiology - Last 24 Hours (Table) 01/30/22 20:23 Blood Culture - Preliminary Blood No Growth after 24 hours
[2022-02-02] MEDS: metroNIDAZOLE-NS PMX 500 MG in SALINE 1 100ML.BAG IVPB SCH ×2 (04:10→10:20)
[2022-02-02] MEDS: SODIUM CHLORIDE 0.9% 1,000 ML IV SCH (04:11)
[2022-02-02] MEDS: HEPARIN SODIUM,PORCINE/PF 5,000 UNIT/0.5 ML SYRINGE SQ SCH (07:29)
[2022-02-02] MEDS: PANTOPRAZOLE 40 MG/10 ML VIAL IVP SCH (07:30)
[2022-02-02 07:44] VITALS: BP 136/95; PULSE 69; RESP 20; TEMP 98.4
[2022-02-02 08:36] LABS: C. trachomatis,PCR Negative (Neg,Equiv); Chlamydia trachomatis Source Vagina; N. gonorrhoeae,PCR Negative (Neg,Equiv); Neisseria Source Vagina
--- NOTE | 2022-02-02 10:37 | P.DS ---
Providers Date of admission: 02/01/22 08:16 Expected date of discharge: 02/02/22 Attending physician: Doyle Bennett Consults: 01/31/22 07:47 Consult Physician Routine Consulting Provider: Elizabeth Perry Consult Reason/Comments: medical management Do you want consulting provider notified?: Yes 01/31/22 07:58 Consult Physician Routine Consulting Provider: Lisandro Rawls Consult Reason/Comments: med manage Do you want consulting provider notified?: Yes Primary care physician: Keri Valentine Hospital Course: Discharge diagnosis 1. Diverticulitis with possible abscess and inflammatory changes of the hepatic flexure of colon. Treated conservatively Hospital course This is a 18-year-old female who presents to the hospital with complaints of right-sided and lower mid abdominal pain. She reports that the pain came on suddenly yesterday. She reports the pain was 7 out of 10. Currently rating pain about 3 out of 10. She had been having dry heaves and nausea with cold sweats. Her bowel movements have been soft. She does have issues with constipation. She denies any fever. She does have prior history of ovarian cyst and kidney infections. Past surgical history includes . Patient to the hospital with diverticulitis with possible abscess. Patient treated with IV antibiotics. Her pain has decreased and is controlled. She tolerated advancement of diet to full liquids. She is afebrile. She is up and ambulating. Patient was treated conservatively. She is stable for discharge. Please refer to chart for any further details. Physician Terminal Supervisor note has been reviewed by physician. Signing provider agrees with the documented findings, assessment, and plan of care. Patient Condition at Discharge: Stable Plan - Discharge Summary Discharge Rx Participant: No New Discharge Prescriptions: New metroNIDAZOLE [Flagyl] 500 mg PO TID #30 tab Levofloxacin [Levaquin] 500 mg PO DAILY 10 Days #10 tab HYDROcodone/APAP 5-325MG [[place] 5-325] 1 tab PO Q6HR PRN 3 Days #12 tab PRN Reason: Pain Discharge Medication List HYDROcodone/APAP 5-325MG [[place] 5-325] 1 tab PO Q6HR PRN 3 Days #12 tab 02/02/22 [Rx] Levofloxacin [Levaquin] 500 mg PO DAILY 10 Days #10 tab 02/02/22 [Rx] metroNIDAZOLE [Flagyl] 500 mg PO TID #30 tab 02/02/22 [Rx] Follow up Appointment(s)/Referral(s): Keri Valentine MD [Primary Care Provider] - 1-2 Days Doyle Bennett MD [STAFF PHYSICIAN] - 1 Week Activity/Diet/Wound Care/Special Instructions: Travelift Operator in [place] Area: [facility] [phone] [facility] [phone] Continue full liquid diet Examples of full liquid diet: Soup, yogurts, pudding, applesauce, cottage cheese, protein shakes, ice cream Discharge Disposition: HOME SELF-CARE
--- NOTE | 2022-02-02 15:30 | P.PN ---
Subjective Progress Note Date: 02/02/22 - Reason for Consult Diverticulitis - History of Present Illness Patient is a pleasant 26-year-old female came in with complaints of a right upper and lower quadrant abdominal pain some stress in severity along with the nausea denied any diarrhea does have issues with occasional constipation. Patient denied any fever chills. Patient had a CT of the abdomen which showed colitis/diverticulitis at the hepatic flexure with the possibility of abscesses that cannot be ruled out because of which patient was admitted to general surgery service patient was started on antibiotics. Patient does have leukocytosis. 02/01/2022 Patient is seen in follow up today and reports to some mild improvement in abdominal pain. Patient has tolerated clear liquid diet and being advanced to full liquid per surgery. Patient WBC improved at 5.5 and other labs within n ormal limits. Patient continues on gentle IV hydration and also continues with IV antibiotics. Patient encouraged to increase activity as tolerated. 02/02/2022 Patient is seen today and states she has some continued cramping in her abdomen although feels improved today. Patient is tolerating full liquid diet and reports to passing gas and did have a bowel movement today. Patient continues on IV antibiotics and will transition to oral antibiotics on discharge. Surgery planning on discharging the patient with close outpatient follow-up in the next week. Patient requesting gynecology resources for IUD removal in the outpatient setting. Names and numbers of those accepting her insurance PROGRAM COORDINATOR provided to the patient on discharge area patient denies chest pain or shortness of breath. Patient is afebrile. Review of systems: Constitutional: No reports of fatigue, fever, or chills Cardiovascular: No reports of chest pain or palpitations Respiratory: No reports of shortness of breath or cough GI: No reports of nausea, vomiting, reports a bowel movement and passing gas, reports mild improvement in abdominal pain : No reports of dysuria or retention Neurovascular: No reports of weakness or numbness All medications have been reviewed PHYSICAL EXAMINATION: GENERAL: The patient is alert and oriented x3, not in any acute distress. Well developed, well nourished. HEENT: Pupils are round and equally reacting to light. EOMI. No scleral icterus. No conjunctival pallor. Normocephalic, atraumatic. No pharyngeal erythema. No thyromegaly. CARDIOVASCULAR: S1 and S2 present. No murmurs, rubs, or gallops. PULMONARY: Chest is clear to auscultation, no wheezing or crackles. ABDOMEN: Less tender on palpation in the right lower quadrant normoactive bowel sounds. No palpable organomegaly. MUSCULOSKELETAL: No joint swelling or deformity. EXTREMITIES: No cyanosis, clubbing, or pedal edema. NEUROLOGICAL: Gross neurological examination did not reveal any focal deficits. SKIN: No rashes. Assessment and plan -Diverticulitis with the low possibility of abscess in the hepatic flexure area and continue with antibiotics. Patient will be monitored. Patient continues on Rocephin and metronidazole. continue GI prophylaxis and avoid excess opiates. Tylenol or toradol. -History of depression -Marijuana use and previous history of smoking -Mild hypervolemic hyponatremia, improved -DVT prophylaxis: Early ambulation -full code Plan: Amenta continue with current occasions and management per primary service. Patient is tolerating diet and had a bowel movement today and is passing gas. Patient reports to improvement in abdominal pain and states she is being discharged today. Recommend follow-up with her primary care provider to establish Dr. Valentine as she has not seen her yet and this will be new to her. Patient also requesting PROGRAM COORDINATOR resources for IUD removal in the outpatient setting. These resources were provided on the discharge packet. Patient will follow-up with general surgery in the outpatient setting on discharge in the next week or so as well. Patient continue on oral antibiotics for discharge. Encourage the patient to avoid tobacco and marijuana use. Will continue to follow along with surgery during hospitalization. Thank you for this cons ultation. Patient anticipates discharge this afternoon. The impression and plan of care has been dictated by Tressa Lopez, nurse practitioner as directed. MD Maribell I have performed a history and examination and MDM of this patient, discussed the same with the dictator, and agree with the dictator's assessment and plan as written ,documented as a scribe. Based on total visit time, I have performed more than 50% of the visit. Number of minutes spent on the visit, 10 minutes. Any additional findings or plans will be noted. Objective - Vital Signs Vital signs: Vital Signs Temp 98.4 F 02/02/22 07:43 Pulse 69 02/02/22 07:43 Resp 20 02/02/22 07:43 BP 136/95 02/02/22 07:43 Pulse Ox 100 02/02/22 07:43 Intake & Output 02/01/22 02/02/22 02/02/22 18:59 06:59 18:59 Intake Total 120 Balance 120 Intake: Oral 120 Other: # Voids 2 1 - Labs CBC & Chem 7: 02/01/22 05:38 02/01/22 05:38 Labs: Abnormal Lab Results - Last 24 Hours (Table) 02/01/22 02/01/22 Range/Units 05:38 05:38 RBC 3.61 L (4.10-5.20) X 10*6/uL Hgb 10.7 L (12.0-15.0) g/dL Hct 32.5 L (37.2-46.3) % Plt Count 121 L (140-440) X 10*3/uL Eosinophils # 0 L (0.04-0.35) X 10*3/uL Carbon Dioxide 19.5 L (20.0-27.5) mmol/L BUN 5.8 L (9.0-27.0) mg/dL BUN/Creatinine Ratio 8.29 L (12.00-20.00) Ratio Calcium 8.2 L (8.7-10.3) mg/dL Microbiology - Last 24 Hours (Table) 01/30/22 20:23 Blood Culture - Final Blood
== END 2022-02-02 12:05 | disposition home or self-care (01) | DRG 392 ==
LOC: EC 15:47 → 1SOBS 23:40 → 6NMEDSUR 01-31 13:13 → OBSVTOIN 02-01 08:16
PROVIDERS: ADMIT Surgery; ATTEND Surgery
DX: K57.32 Diverticulitis of large intestine without perforation or abscess without bleeding (principal); E87.1 Hypo-osmolality and hyponatremia; K59.00 Constipation, unspecified; I86.8 Varicose veins of other specified sites; N83.202 Unspecified ovarian cyst, left side; R35.0 Frequency of micturition; K52.9 Noninfective gastroenteritis and colitis, unspecified; E87.70 Fluid overload, unspecified; F32.A Depression, unspecified; G89.29 Other chronic pain; M54.9 Dorsalgia, unspecified; M25.512 Pain in left shoulder; M25.511 Pain in right shoulder; M25.552 Pain in left hip; M25.551 Pain in right hip; M79.605 Pain in left leg; M79.604 Pain in right leg; Z87.891 Personal history of nicotine dependence; Z87.440 Personal history of urinary (tract) infections
CPT/HCPCS: 36415; 74177; 76856; 80048; 80053; 81003; 81025; 83605; 83690; 85025; 87040; 87491; 87591; 87808; 93975; 96361; 96365; 96366; 96368; 96375; 96376; 99285

== ENCOUNTER → 2022-02-12 | Outpatient (CLI) | payer OTHER ==
--- NOTE | 2022-02-12 12:57 | CT ---
EXAMINATION TYPE: CT abdomen pelvis w con DATE OF EXAM: 02/12/2022 COMPARISON: 01/30/2022 HISTORY: 18-year-old female K57.80, Lower abdominal pain, diverticulitis. Technologist history: Patie nt having lower left-sided abdominal pain as well as right-sided pain. TECHNIQUE: Contiguous axial scanning of the abdomen and pelvis following administration of 100 ml Iso marc 300 IV contrast. Delayed images through the kidneys and coronal/sagittal reconstructions perform ed. CT DLP: 476.9 mGycm Automated exposure control for dose reduction was used. FINDINGS: Heart normal size without pericardial effusion. Lung bases clear without pleural effusion. No focal liver lesion or biliary ductal dilatation. Portal venous system is patent. The adrenal glands, kidneys, spleen, and pancreas within normal limits. Suspect a tiny dependent gall stone, axial image 27. No dilated small bowel, free fluid, or free air. No mesenteric or retroperitoneal lymphadenopathy farrah ntified. Normal appendix. Oral contrast progressed to the rectum. The extensive inflammatory change along the ascending colon h ave largely resolved. Minimal residual fat stranding along the paracolic gutter remains. No abnormal fluid collection. Tiny nondependent focus of intraluminal bladder air will need further clinical correlation. Uterus an teverted with IUD in place. Prominent follicular change in the left ovary and is borderline in size a t 21.6 mL. Right ovary not clearly delineated from adjacent bowel. There is a soft tissue nodule within the subcutaneous adipose layer anterior left paramedian pelvis m easuring 1.3 cm. This measured 1.0 cm on 01/30/2022, sagittal image 66 and axial image 61. Otherwise, n o abnormal fluid collection in the pelvis or pelvic lymphadenopathy. No osseous destructive process. IMPRESSION: 1. INTERVAL RESOLUTION OF THE PREVIOUS ASCENDING COLITIS AND EXTENSIVE SURROUNDING INFLAMMATORY CONTRERAS ES. ONLY MINIMAL RESIDUAL FAT STRANDING REMAINS ALONG THE RIGHT PARACOLIC GUTTER. NO ABSCESS. 2. BORDERLINE ENLARGED LEFT OVARY LIKELY SECONDARY TO PROMINENT FOLLICULAR CHANGE. VOLUME OF 21.6 ML. THE TECHNOLOGIST INDICATES THAT THE PATIENT IS HAVING LEFT LOWER QUADRANT PAIN WELL, CONSIDER PELVIC ULTRASOUND WITH DOPPLER ASSESSMENT TO ENSURE NORMAL PHYSIOLOGIC CHANGES OF THE LEFT OVARY. 3. A 1.3 CM SOFT TISSUE NODULE IN THE SUBCUTANEOUS ADIPOSE LAYER OF THE ANTERIOR LEFT PARAMEDIAN PELV IS MEASURED 1.0 CM, PREVIOUSLY. THE ETIOLOGY IS UNCLEAR ESPECIALLY IN THE ABSENCE OF ANY PREVIOUS C-S ECTION. CORRELATE FOR ANY PALPABLE ABNORMALITY AND TARGETED ULTRASOUND CLINICALLY INDICATED.
== END | disposition home or self-care (01) ==
LOC: RADCTMAIN 10:17
PROVIDERS: ATTEND Family Medicine
DX: K52.9 Noninfective gastroenteritis and colitis, unspecified (principal); R10.32 Left lower quadrant pain
CPT/HCPCS: 74177; Q9967

== ENCOUNTER → 2022-02-15 | Outpatient (CLI) | payer OTHER ==
--- NOTE | 2022-02-15 16:07 | XR ---
EXAMINATION TYPE: XR lumbar spine 2 or 3V DATE OF EXAM: 02/15/2022 CLINICAL HISTORY: Chronic low back pain. TECHNIQUE: Frontal and lateral images of the lumbar spine are obtained. COMPARISON: CT abdomen and pelvis 3 days ago FINDINGS: There are 5 lumbar type vertebral bodies redemonstrated. The lumbar spine shows satisfact ory alignment. Vertebral body heights and disk space heights are within normal limits. The overlying soft tissue appears unremarkable. IMPRESSION: Unremarkable study.
== END | disposition home or self-care (01) ==
LOC: RADXRMAIN 15:49
PROVIDERS: ATTEND Family Medicine
DX: M54.50 Low back pain, unspecified (principal)
CPT/HCPCS: 72100

== ENCOUNTER 2022-03-08 08:12 | Day surgery (SDC) | payer OTHER ==
[2022-03-07 08:49] VITALS: BMI 25.7
[~2022-03-08 08:12] MED LIST: LACTATED RINGERS 1,000 ML IV SCH; LIDOCAINE 1% (10MG/ML) FOR IV START INTRADERMA PRN
[2022-03-08 08:50] VITALS: RESP 16; TEMP 97.2
[2022-03-08] MEDS ORDERED: PROPOFOL 10 MG/ML 20 ML VIAL IV ONE (10:14)
[2022-03-08] MEDS ORDERED: LIDOCAINE 1% INJ 10MG/ML (20 ML MDV) ONE (10:14)
--- NOTE | 2022-03-08 10:23 | P.GSHP ---
History of Present Illness H&P Date: 03/08/22 Chief Complaint: History of diverticulitis This a 18-year-old female who had a recent admission for diverticulitis of the hepatic flexure. Patient rents today for colonoscopy. Past Medical History Past Medical History: No Reported History Additional Past Medical History / Comment(s): DX WITH DIVERTICULITIS 01/30/22 History of Any Multi-Drug Resistant Organisms: None Reported Past Surgical History: Section Additional Past Surgical History / Comment(s): IUD INSERTION Past Anesthesia/Blood Transfusion Reactions: No Reported Reaction Smoking Status: Former smoker, Vaper - Past Family History Mother Family Medical History: No Reported History Additional Family Medical History / Comment(s): Mother is healthy Father History Unknown: Yes Family Medical History: No Reported History Medications and Allergies Home Medications Medication Instructions Recorded Confirmed Type Escitalopram [Lexapro] 20 mg PO DAILY 03/07/22 03/08/22 History Montelukast [Singulair] 10 mg PO DAILY 03/07/22 03/08/22 History busPIRone HCL 15 mg PO BID 03/07/22 03/08/22 History Allergies Allergy/AdvReac Type Severity Reaction Status Date / Time No Known Allergies Allergy Verified 03/08/22 08:53 Surgical - Exam Vital Signs Temp Pulse Resp BP Pulse Ox 97.2 F L 66 16 125/76 97 03/08/22 08:43 03/08/22 08:43 03/08/22 08:43 03/08/22 08:43 03/08/22 08:43 - General well developed, well nourished, no distress - Eyes PERRL - ENT normal pinna - Neck no masses - Respiratory normal expansion - Cardiovascular Rhythm: regular - Abdomen Abdomen: soft, non tender Assessment and Plan Assessment: History of diverticulitis. We'll perform colonoscopy
--- NOTE | 2022-03-08 10:47 | P.OP ---
Date of Procedure: 03/08/22 Preoperative Diagnosis: History of diverticulitis Postoperative Diagnosis: Normal colon Procedure(s) Performed: Colonoscopy Anesthesia: MAC Surgeon: Doyle Bennett Pathology: none sent Condition: stable Disposition: PACU Description of Procedure: Patient's placed on the endoscopy table in the lateral position. She received IV sedation. Digital rectal exam was performed which revealed no abnormalities. Flexible colonoscope was then placed patient anus and passed throughout the entire colon. The ileocecal valve was visualized. Cecum, ascending and transverse colon appeared normal. The hepatic flexure was examined carefully. There is no evidence of any scope was then brought back and the remainder of the transverse colon descending colon and sigmoid colon appeared normal. Scope was then brought back the rectum and this appeared normal. Scope withdrawn for patient.
[2022-03-08 11:07] VITALS: BP 120/76; PULSE 52
== END 2022-03-08 11:27 | disposition home or self-care (01) ==
LOC: ORWHC2ENDO 08:12
PROVIDERS: ATTEND Surgery
DX: K57.33 Diverticulitis of large intestine without perforation or abscess with bleeding (principal); K57.32 Diverticulitis of large intestine without perforation or abscess without bleeding; Z98.891 History of uterine scar from previous surgery; Z97.5 Presence of (intrauterine) contraceptive device; F17.200 Nicotine dependence, unspecified, uncomplicated; Z79.899 Other long term (current) drug therapy
CPT/HCPCS: 81025; 45378; J2001; J2704

== ENCOUNTER → 2022-08-08 | Outpatient (CLI) | payer OTHER ==
--- NOTE | 2022-08-10 07:34 | US ---
EXAMINATION TYPE: US transvaginal DATE OF EXAM: 08/08/2022 COMPARISON: CT, US CLINICAL HISTORY: N83.209 OVARIAN CYST. Ovarian cyst, patient states she gets shooting pain at times in her pelvis. Hx 1 C section. . TECHNIQUE: Transvaginal (TV). Date of LMP: 07/31/2022 EXAM MEASUREMENTS: Uterus: 8.8 x 5.7 x 3.8 cm Endometrial Stripe: 0.44 cm Right Ovary: 4.3 x 2.7 x 2.2 cm Left Ovary: 4.8 x 4.0 x 3.5 cm 1. Uterus: Anteverted Appears heterogeneous. Prominent vascularity within peripheral uterus. Subcen timeter anechoic area seen in cervix. 2. Endometrium: Measures 0.44 cm. 3. Right Ovary: Appears wnl 4. Left Ovary: Appears enlarged. Hypoechoic area with echogenic border seen: 2.6 x 2.5 x 2.6 cm. Complex area seen: 1.1 x 1.5 x 1.2 cm. Spectral, color and waveform doppler imaging shows arterial and venous flow within the ovaries; the re is no evidence for ovarian torsion. 5. Bilateral Adnexa: Appear wnl 6. Posterior cul-de-sac: Appears wnl IMPRESSION: 1. Uterine heterogeneity with varicosities noted. 2. Complex left ovarian lesion. Consider follow-up study in 6 weeks.
== END | disposition home or self-care (01) ==
LOC: RADUSWWP 09:36
PROVIDERS: ATTEND Family Medicine
DX: I83.90 Asymptomatic varicose veins of unspecified lower extremity (principal); N83.8 Other noninflammatory disorders of ovary, fallopian tube and broad ligament
CPT/HCPCS: 76830

== ENCOUNTER → 2022-12-07 | Outpatient (CLI) | payer OTHER ==
--- NOTE | 2022-12-07 09:14 | US ---
EXAMINATION TYPE: US transvaginal DATE OF EXAM: 12/07/2022 COMPARISON: Transvaginal ultrasound 08/08/2022, pelvic ultrasound 01/30/2022 CLINICAL HISTORY: N83.209 Ovarian cyst. ovarian cyst had last month. TECHNIQUE: Transvaginal (TV EXAM MEASUREMENTS: Uterus: 8 x 4.5 x 5.7 cm Endometrial Stripe: 1.6 cm Right Ovary: 2.8 x 1.4 x 1.5 cm Left Ovary: 4.5 x 2.1 x 3.1 cm 1. Uterus: Anteverted wnl 2. Endometrium: heterogenous 3. Right Ovary: follicles seen. 4. Left Ovary: Hypoechoic area seen 1.8 x 2.0 x 1.6 cm . No internal color flow identified within th e lesion. There is normal color flow to the remaining left ovary. 5. Bilateral Adnexa: wnl 6. Posterior cul-de-sac: wnl 7. Cervix: Incidental nabothian cyst IMPRESSION: 1. Unchanged left ovarian hypoechoic 2.0 cm mass which may represent an endometrioma. Further evaluat ion with pelvic MRI is recommended. 2. Endometrium is at the top end of normal for thickness likely due to phase of menstruation. 3. Nonspecific heterogenous appearance of the uterus which can be seen with fibroid changes versus ad enomyosis. This can be further evaluated with recommendation for #1.
== END | disposition home or self-care (01) ==
LOC: RADUSWWP 08:21
PROVIDERS: ATTEND Family Medicine
DX: N83.8 Other noninflammatory disorders of ovary, fallopian tube and broad ligament (principal)
CPT/HCPCS: 76830

== ENCOUNTER → 2023-05-23 | Outpatient (CLI) | payer OTHER ==
--- NOTE | 2023-05-23 09:56 | CT ---
EXAMINATION TYPE: CT abdomen pelvis w con DATE OF EXAM: 05/23/2023 COMPARISON: 02/12/2022 HISTORY: Left sided abdominal/pelvic pain and constipation. CT DLP: 577.8 mGycm CONTRAST: CT scan of the abdomen and pelvis is performed with Oral Contrast and with IV Contrast, patient injec santhosh with 100ml mL of Isovue 300. FINDINGS: LUNG BASES-: No visible nodule. No infiltrate. LIVER/GB: No calcified gallstones. No space occupying hepatic lesion. Biliary tree is of normal ca liber. PANCREAS: No inflammation. No distinct mass. SPLEEN: No splenic enlargement. No lesion seen. ADRENALS: No nodule. No thickening. KIDNEYS/BLADDER: No hydronephrosis. No nephrolithiasis. No distinct renal mass. Urinary bladder g rossly unremarkable. BOWEL: Normal appendix. Normal bowel caliber. No inflammation. GENITAL ORGANS: Left ovarian cystic lesion is redemonstrated and measures 3.7 cm maximal dimension v ersus 4.1 cm previously. Ultrasound correlation advised. The uterus and right ovary are grossly unrem arkable. LYMPH NODES: No greater than 1cm abdominal or pelvic lymph nodes are appreciated. AORTA: No significant abnormality. OSSEOUS STRUCTURES: No significant abnormality is seen. OTHER: Stable 1 cm subcutaneous nodule low anterior abdominal wall subcutaneous tissue to the left of midline. IMPRESSION: 1. Left ovarian cystic lesion is redemonstrated and measures 3.7 cm maximal dimension versus 4.1 cm p reviously. Ultrasound correlation advised. 2.Stable 1 cm subcutaneous nodule low anterior abdominal wall subcutaneous tissue to the left of midl ine.
== END | disposition home or self-care (01) ==
LOC: RADCTMAIN 07:14
PROVIDERS: ATTEND Family Medicine
DX: N83.202 Unspecified ovarian cyst, left side (principal); K57.80 Diverticulitis of intestine, part unspecified, with perforation and abscess without bleeding; R91.1 Solitary pulmonary nodule; K59.00 Constipation, unspecified
CPT/HCPCS: 74177; Q9967

== ENCOUNTER 2023-08-14 08:22 | Emergency (ER) | payer OTHER ==
[2023-08-14 08:39] VITALS: RESP 18
[2023-08-14] MEDS ORDERED: SODIUM CHLORIDE 0.9% 1,000 ML IV STA (08:44)
[2023-08-14] MEDS ORDERED: KETOROLAC 15 MG/ML 1 ML VIAL IVP STA (08:54)
[2023-08-14] MEDS ORDERED: ONDANSETRON 4 MG/2 ML VIAL IVP STA (08:54)
[2023-08-14] MEDS ORDERED: PANTOPRAZOLE 40 MG/10 ML VIAL IVP STA (08:54)
[2023-08-14 10:02] LABS: Basophils % (A) 0 %; Eosinophils # (A) 0.1 k/uL (0-0.7); Eosinophils % (A) 2 %; HCT 40.6 % (34.0-46.0); HGB 13.6 gm/dL (11.4-16.0); Lymphocytes # (A) 1.4 k/uL (1.0-4.8); Lymphocytes % (A) 29 %; MCH 30.3 pg (25.0-35.0); MCHC 33.4 g/dL (31.0-37.0); MCV 90.6 fL (80.0-100.0); Mean Platelet Volume 8.6; Monocytes # (A) 0.4 k/uL (0-1.0); Monocytes % (A) 7 %; Neutrophils % (A) 60 %; Platelet Count 186 k/uL (150-450); RBC 4.48 m/uL (3.80-5.40); RDW 12.1 % (11.5-15.5)
[2023-08-14 10:15] LABS: HCG,Qualitative Serum Not Detected
[2023-08-14 10:16] LABS: Appearance,Urine Clear (Clear); Bilirubin,Urine Negative (Negative); Blood,Urine Negative (Negative); Color,Urine Colorless; Glucose,Urine (UA) Negative (Negative); Ketones,Urine Negative (Negative); Leukocyte Esterase,Urine Negative (Negative); Nitrite,Urine Negative (Negative); PH, Urine 5.5 (5.0-8.0); Protein,Urine Negative (Negative); Specific Gravity,Urine 1.005 (1.001-1.035); Urobilinogen,Urine <2.0 mg/dL (<2.0)
--- NOTE | 2023-08-14 10:19 | CT ---
EXAMINATION TYPE: CT abdomen pelvis w con CT DLP: 784.4 mGycm, Automated exposure control for dose reduction was used. DATE OF EXAM: 08/14/2023 10:07 AM COMPARISON: CT abdomen pelvis most recent from 05/23/2023, ultrasound 12/07/2022. CLINICAL INDICATION:Female, 27 years old with history of abd pain LLQ, hx diverticulitis; LLA pain, D iverticulitis TECHNIQUE: Axial CT of the abdomen and pelvis. Sagittal and coronal reformats were created on a [employer] workstation. Contrast used:100 ml mL of Isovue 300 with IV Contrast, (none if empty) Oral contrast used: without Oral Contrast (none if empty) FINDINGS: LOWER CHEST: Unremarkable ABDOMEN LIVER: Unremarkable GALLBLADDER AND BILE DUCTS: Unremarkable. PANCREAS: Unremarkable. SPLEEN: Unremarkable. ADRENAL GLANDS: Unremarkable. KIDNEYS AND URETERS: No evidence of hydronephrosis or renal calculus. The ureters are unremarkable. PELVIS BLADDER: Unremarkable REPRODUCTIVE: Left ovarian cyst remains measuring up to 2.0 cm. ABDOMEN & PELVIS STOMACH AND BOWEL: No evidence of bowel obstruction. PERITONEUM/RETROPERITONEUM: No evidence of pneumoperitoneum or free fluid. VASCULATURE: No evidence of aortic aneurysm. Multiple dilated vessels are seen within the left pelvis with early opacification of the left gonadal vein. There is narrowing of the left renal vein as it c rosses the aorta with subsequent dilation of the MUSCULOSKELETAL: No acute osseous abnormalities LYMPH NODES: No gross evidence for lymphadenopathy. SOFT TISSUE/ABDOMINAL WALL: Unremarkable IMPRESSION: 1. 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 2. No evidence for diverticulitis. 3. Left ovarian 2.0 cm lesion dating back to at least 12/07/2022 ultrasound.
[2023-08-14 10:31] LABS: ALT 18 U/L (4-34); AST 24 U/L (14-36); African American GFR (CKD) >90 (>60 ml/min/1.73 sqM); Alkaline Phosphatase 44 U/L (38-126); Amylase 53 U/L (30-110); Anion Gap 6 mmol/L; Blood Urea Nitrogen 15 mg/dL (7-17); Calcium 9.1 mg/dL (8.4-10.2); Carbon Dioxide 23 mmol/L (22-30); Chloride 109 mmol/L (98-107); Glucose 84 mg/dL (74-99); Lipase 64 U/L (23-300); Non-African American GFR(CKD) 90 (>60 ml/min/1.73 sqM); Potassium 4.8 mmol/L (3.5-5.1); Sodium 138 mmol/L (137-145); Total Bilirubin 0.4 mg/dL (0.2-1.3)
--- NOTE | 2023-08-14 10:35 | ED ---
General Adult HPI - General Chief complaint: Abdominal Pain Stated complaint: Diverticulitis episode Time Seen by Provider: 08/14/23 08:25 Source: patient, RN notes reviewed, old records reviewed Mode of arrival: ambulatory Limitations: no limitations - History of Present Illness Initial comments: Patient is a 27-year-old female who presents emergency Department complaining of abdominal pain and bloating. Has been an ongoing issue for the last month. Has been on and about expert diverticulitis the last week. Previously diagnosed with diverticulitis a year ago. Has been having loose stool but also takes lactulose. Denies any nausea or vomiting. Denies any chest pain and shortness breath. Has no urinary complaints or vaginal discharge or bleeding. Denies abdominal bloating. He said he told her she may have IBS. However patient states landmarks doesn't seem to be improving with the bloating and wanted to be evaluated. Has intermittent left lower quadrant pain but also just generalized abdominal discomfort and bloating. No fevers. Symptoms relatively constant the last 3-4 weeks. - Related Data Home Medications Medication Instructions Recorded Confirmed Escitalopram [Lexapro] 20 mg PO DAILY 03/07/22 03/08/22 Montelukast [Singulair] 10 mg PO DAILY 03/07/22 03/08/22 busPIRone HCL 15 mg PO BID 03/07/22 03/08/22 Allergies Allergy/AdvReac Type Severity Reaction Status Date / Time No Known Allergies Allergy Verified 08/14/23 08:39 Review of Systems ROS Statement: Those systems with pertinent positive or pertinent negative responses have been documented in the HPI. Review of Systems: CONST: Denies fever EYES: Denies blurry vision ENT: Denies nasal congestion C/V: Denies Chest pain RESP: Denies shortness of breath GI: Endorses abdominal pain : Denies dysuria SKIN: Denies rash. MSK: Denies joint pain. NEURO: Denies headache ROS Other: All systems not noted in ROS Statement are negative. Past Medical History Past Medical History: No Reported History Additional Past Medical History / Comment(s): Recently diagnosed with L ovarian cyst, UTIs, kidney infections, occasional light headedness, chronic pain/back, neck and shoulders, hips. History of Any Multi-Drug Resistant Organisms: None Reported Past Surgical History: Section Additional Past Surgical History / Comment(s): IUD Past Anesthesia/Blood Transfusion Reactions: No Reported Reaction Past Psychological History: ADD/ADHD, Anxiety, Depression Smoking Status: Former smoker, Vaper Past Alcohol Use History: Occasional Past Drug Use History: Marijuana - Past Family History Mother Family Medical History: No Reported History Additional Family Medical History / Comment(s): Mother is healthy Father History Unknown: Yes Family Medical History: No Reported History General Exam - General Exam Comments Initial Comments: General: Appears in no acute distress. HEAD: Normal with no signs of head trauma. EYES: PERRLA, EOMI, conjunctiva normal, no discharge. ENT: Hearing grossly intact, normal oropharynx. RESPIRATORY: Clear breath sounds bilaterally. No wheezes, rales, or rhonchi. C/V: Regular rate and rhythm. S1 and S2 auscultated, no edema, peripheral pulses 2+ and intact throughout ABD: Abdomen soft, no focal tenderness to palpation on exam. Somewhat bloated but no significant distention. No guarding. No rebound tenderness. No peritoneal signs. EXT: Normal range of motion, no obvious deformity SKIN: No rashes or lesions observed on exposed skin. NEURO: Alert and oriented 4. Limitations: no limitations Course Vital Signs 08/14/23 08:34 Temperature 98.1 F Pulse Rate 58 L Respiratory 18 Rate Blood Pressure 92/54 O2 Sat by Pulse 100 Oximetry Medical Decision Making - Medical Decision Making Was pt. sent in by a medical professional or institution (, PA, PURE CULTURE OPERATOR, urgent care, hospital, or senior care...) When possible be specific @ -No Did you speak to anyone other than the patient for history (EMS, parent, family, police, friend...)? What history was obtained from this source @ -No Did you review nursing and triage notes (agree or disagree)? Why? @ -I reviewed and agree with nursing and triage notes Were old charts reviewed (outside hosp., previous admission, EMS record, old EKG, old radiological studies, urgent care reports/EKG's, senior care records)? Report findings @ -Old charts were reviewed. Differential Diagnosis (chest pain, altered mental status, abdominal pain women, abdominal pain men, vaginal bleeding, weakness, fever, dyspnea, syncope, h eadache, dizziness, GI bleed, back pain, seizure, CVA, palpatations, mental health, musculoskeletal)? @ -Differential Abdominal Pain Women: Appendicitis, Cholecystitis, diverticulosis, ischemic bowel, pancreatitis, hepatitis, UTI, gastroenteritis, AAA, incarcerated hernia, bowel obstruction, constipation, inflammatory bowel, hepatitis, peptic ulcer disease, splenic infarction, perforated viscus, vulvitis, ovarian torsion, PID, kidney stone, placenta abruption, this is not meant to be an all-inclusive list EKG interpreted by me (3pts min.). @ -None done X-rays interpreted by me (1pt min.). @ -None done CT interpreted by me (1pt min.). @ -CT imaging reveals possible nutcracker syndrome in the appropriate clinical setting but no evidence of diverticulitis or other infectious bowel etiology. There is a left ovarian lesion that is known to the patient. U/S interpreted by me (1pt. min.). @ -None done What testing was considered but not performed or refused? (CT, X-rays, U/S, labs)? Why? @ -None What meds were considered but not given or refused? Why? @ -None Did you discuss the management of the patient with other professionals (professionals i.e. , PA, PURE CULTURE OPERATOR, lab, RT, psych nurse, social service technician, associate professor of theology, teacher, forest fire management officer, disease case manager rn)? Give summary @ -No Was smoking cessation discussed for >3mins.? @ -No Was critical care preformed (if so, how long)? @ -No Were there social determinants of health that impacted care today? How? (Homelessness, low income, unemployed, alcoholism, drug addiction, transportation, low edu. Level, literacy, decrease access to med. care, shelter, rehab)? @ -No Was there de-escalation of care discussed even if they declined (Discuss DNR or withdrawal of care, Hospice)? DNR status @ -No What co-morbidities impacted this encounter? (DM, HTN, Smoking, COPD, CAD, Cancer, CVA, ARF, Chemo, Hep., AIDS, mental health diagnosis, sleep apnea, morbid obesity)? @ -None Was patient admitted / discharged? Hospital course, mention meds given and route, prescriptions, significant lab abnormalities, going to OR and other pertinent info. @ -Based on the patient's presentation and physical exam, she is concerned she may be having a diverticulitis episode. Currently has had symptoms for 1 month. She is currently on antibiotics. We will obtain abdominal labs as well as CT abdomen and pelvis. She was in agreement this plan. She will be symptomatically treated with IV fluids, Toradol, Zofran, Protonix. Vital signs are within acceptable limits. Patient's labs are within acceptable limits as well including a negative test. CT imaging reveals no evidence of diverticulitis or infectious etiology. However there is possible nutcracker syndrome in the appropriate clinical setting the patient currently has no hematuria or blood in the urine as well as normal renal function and therefore I have low suspicion for this at this time. I did discuss this patient and she expressed understanding. We discussed her workup including the concern for nutcracker syndrome but currently does not appear to have a she has no evidence of hematuria or renal dysfunction. Symptoms appear to be likely secondary to possible IBS. Neal mmended follow-up with GI and PCP. She was in agreement with this plan. Recommend that she stop antibiotic use that she has been on it for one week with no evidence of diverticulitis. She was in agreement with the plan. I instructed the patient to follow up with their PCP in the next 1-3 days. I provided contact information for follow up with gastroenterology. I explained that the patient should return to the emergency department if they experience any worsening symptoms. Strict return precautions were discussed with the patient. The patient expressed understanding of these instructions. I answered all questions that the patient had. The patient was discharged home in good condition with their prescriptions and follow up information. Undiagnosed new problem with uncertain prognosis? @ -No Drug Therapy requiring intensive monitoring for toxicity (Heparin, Nitro, Insulin, Cardizem)? @ -No Were any procedures done? @ -No Diagnosis/symptom? @ -Abdominal pain of unknown etiology, suspect IBS Acute, or Chronic, or Acute on Chronic? @ -Acute on chronic Uncomplicated (without systemic symptoms) or Complicated (systemic symptoms)? @ -Uncomplicated Side effects of treatment? @ -No Exacerbation, Progression, or Severe Exacerbation? @ -No Poses a threat to life or bodily function? How? (Chest pain, [place], [place], pneumonia, PE, COPD, DKA, ARF, appy, cholecystitis, CVA, Diverticulitis, Homicidal, Suicidal, threat to staff... and all critical care pts) @ -No - Lab Data Result diagrams: 08/14/23 09:04 08/14/23 09:04 Lab Results 08/14/23 08/14/23 08/14/23 Range/Units 09:04 09:04 09:04 WBC 5.0 (3.8-10.6) k/uL RBC 4.48 (3.80-5.40) m/uL Hgb 13.6 (11.4-16.0) gm/dL Hct 40.6 (34.0-46.0) % MCV 90.6 (80.0-100.0) fL MCH 30.3 (25.0-35.0) pg MCHC 33.4 (31.0-37.0) g/dL RDW 12.1 (11.5-15.5) % Plt Count 186 (150-450) k/uL MPV 8.6 Neutrophils % 60 % Lymphocytes % 29 % Monocytes % 7 % Eosinophils % 2 % Basophils % 0 % Neutrophils # 3.0 (1.3-7.7) k/uL Lymphocytes # 1.4 (1.0-4.8) k/uL Monocytes # 0.4 (0-1.0) k/uL Eosinophils # 0.1 (0-0.7) k/uL Basophils # 0.0 (0-0.2) k/uL Sodium 138 (137-145) mmol/L Potassium 4.8 (3.5-5.1) mmol/L Chloride 109 H (98-107) mmol/L Carbon Dioxide 23 (22-30) mmol/L Anion Gap 6 mmol/L BUN 15 (7-17) mg/dL Creatinine 0.88 (0.52-1.04) mg/dL Est GFR (CKD-EPI)AfAm >90 (>60 ml/min/1.73 sqM) Est GFR (CKD-EPI)NonAf 90 (>60 ml/min/1.73 sqM) Glucose 84 (74-99) mg/dL Calcium 9.1 (8.4-10.2) mg/dL Total Bilirubin 0.4 (0.2-1.3) mg/dL AST 24 (14-36) U/L ALT 18 (4-34) U/L Alkaline Phosphatase 44 (38-126) U/L Total Protein 7.0 (6.3-8.2) g/dL Albumin 4.0 (3.5-5.0) g/dL Amylase 53 (30-110) U/L Lipase 64 (23-300) U/L HCG, Qual Not Detected Urine Color Colorless Urine Appearance Clear (Clear) Urine pH 5.5 (5.0-8.0) Ur Specific [place] 1.005 (1.001-1.035) Urine Protein Negative (Negative) Urine Glucose (UA) Negative (Negative) Urine Ketones Negative (Negative) Urine Blood Negative (Negative) Urine Nitrite Negative (Negative) Urine Bilirubin Negative (Negative) Urine Urobilinogen <2.0 (<2.0) mg/dL Ur Leukocyte Esterase Negative (Negative) Disposition Clinical Impression: Abdominal pain, Abdominal bloating Disposition: HOME SELF-CARE Condition: Good Instructions (If sedation given, give patient instructions): Abdominal Pain (ED) Additional Instructions: CT imaging showed possible nutcracker syndrome of your renal veinin the correct clinical setting. You do not have the typical lab findings or symptoms which includes blood in urine, microscopic hematuria, or kidney dysfunction. Does not appear to be present at this time but monitor for symptoms as treatment includes stenting. Appears you have IBS, no evidence of diverticulitis. I would recommending stopping antibiotics and eating a bland diet. Return if symptoms worsen. Follow up with PCP in 1-3 days. Is patient prescribed a controlled substance at d/c from ED?: No Referrals: Keri Valentine MD [Primary Care Provider] - 1-2 days Ailyn Guadalupe MD [STAFF PHYSICIAN] - 1-2 days Time of Disposition: 10:57
[2023-08-14 11:28] VITALS: BP 112/64; PULSE 62; TEMP 98.2
== END 2023-08-14 11:29 | disposition home or self-care (01) ==
LOC: EC 08:22
DX: R10.9 Unspecified abdominal pain (principal); R14.0 Abdominal distension (gaseous); F32.A Depression, unspecified; F41.9 Anxiety disorder, unspecified; F17.290 Nicotine dependence, other tobacco product, uncomplicated; F12.90 Cannabis use, unspecified, uncomplicated; Z79.899 Other long term (current) drug therapy
CPT/HCPCS: 36415; 80053; 82150; 83690; 85025; 81003; 84703; 74177; 99284; 96374; 96375 ×2; 96361; J2405; J1885; C9113; Q9967

== ENCOUNTER → 2023-09-19 | Outpatient (CLI) | payer OTHER ==
--- NOTE | 2023-09-19 12:50 | NM ---
EXAMINATION TYPE: NM hepatobiliary w EF DATE OF EXAM: 09/19/2023 COMPARISON: NONE CLINICAL INDICATION: Female, 28 years old with history of R10.811 RUQ abdominal tenderness; TECHNIQUE: After the intravenous administration of 3.5 mCi Tc 99m Mebrofenin hepatobiliary scintigrap hy is performed. Immediate images post injection. FINDINGS: There is satisfactory initial accumulation of tracer by the liver. The gallbladder is visualized wit hin 12 minutes. The small bowel activity is noted within 44 minutes. At one hour 8 ounces of oral e nsure plus is given to mimic CCK and gallbladder ejection fraction is calculated at 74 %, in the norm al range. Therefore there is no scintigraphic evidence of cystic or common bile duct obstruction to suggest acute cholecystitis or gallbladder dyskinesia. IMPRESSION: Exam is within normal limits.
== END | disposition home or self-care (01) ==
LOC: RADNMMAIN 07:02
PROVIDERS: ATTEND Family Medicine
DX: R10.811 Right upper quadrant abdominal tenderness (principal)
CPT/HCPCS: 78226; A9537

== ENCOUNTER → 2023-09-25 | Outpatient (CLI) | payer OTHER ==
--- NOTE | 2023-09-25 23:02 | US ---
EXAMINATION TYPE: US abdomen complete DATE OF EXAM: 09/25/2023 COMPARISON: CLINICAL INDICATION: Female, 28 years old with history of R10.811 ABD PAIN; Patient states having gen eral abdomen pain. Change in bowel habits. Patient states she had some juice this morning. TECHNIQUE: Multiple sonographic images of the abdomen are obtained. FINDINGS: EXAM MEASUREMENTS: Liver Length: 13.9 cm Gallbladder Wall: 0.2 cm CBD: 0.4 cm Spleen: 10.8 cm Right Kidney: 9.7 x 4.9 x 3.9 cm Left Kidney: 9.6 x 5.3 x 3.5 cm Pancreas: No prominent masses or lesions seen at time of scan Liver: No prominent masses or lesions seen at time of scan Gallbladder: Mobile echogenic focus with shadow = 1.1 cm Evidence for sonographic Calles's sign: neg CBD: wnl CHD: wnl Spleen: No prominent masses or lesions seen at time of scan Right Kidney: No hydronephrosis or masses seen Left Kidney: Limited lower pole due to bowel gas Upper IVC: wnl Abd Aorta: No AAA visualized at time of scan IMPRESSION: 1. Cholelithiasis.
== END | disposition home or self-care (01) ==
LOC: RADUSWWP 09-13 07:00
PROVIDERS: ATTEND Family Medicine
DX: K80.20 Calculus of gallbladder without cholecystitis without obstruction (principal); R19.4 Change in bowel habit
CPT/HCPCS: 76700

== ENCOUNTER 2024-02-24 08:08 | Emergency (ER) | payer OTHER ==
[2024-02-24 08:27] VITALS: RESP 18
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
[2024-02-24 10:19] VITALS: BP 130/80; PULSE 76; TEMP 98.9
== END 2024-02-24 10:15 | disposition home or self-care (01) ==
LOC: EC 08:08
DX: L03.213 Periorbital cellulitis (principal); F17.290 Nicotine dependence, other tobacco product, uncomplicated; F12.90 Cannabis use, unspecified, uncomplicated
CPT/HCPCS: 87636; 99283

== ENCOUNTER → 2024-05-01 | Outpatient (CLI) | payer OTHER ==
--- NOTE | 2024-05-01 13:36 | CT ---
EXAMINATION TYPE: CT brain wo con DATE OF EXAM: 05/01/2024 COMPARISON: None HISTORY: 28-year-old female G44.52, lump to left side of head, headaches TECHNIQUE: Examination was done in axial plane without intravenous contrast. Coronal and sagittal r econstructions performed. CT DLP: 978.2 mGycm Automated exposure control for dose reduction was used. FINDINGS: There is no evidence of acute intracranial hemorrhage, acute ischemic changes, mass, mass-effect, or extra-axial fluid collection. There is no effacement of cerebral sulci or basal subarachnoid cister ns. There is no hydrocephalus. There is no midline shift. Estrada-white matter distinction is preserv ed. There is a 1.5 cm mucosal retention cyst along the medial wall of the right maxillary sinus. Addition al 7 mm mucosal retention cyst anterior roof of the right maxillary sinus. Moderate mucosal thickenin g sphenoid sinuses. Rightward nasal septal deviation. Mastoid air cells well pneumatized. Orbits and globes are intact. No discrete calvarial abnormality is seen. IMPRESSION: 1. Mild chronic right maxillary sinus disease. Moderate chronic sphenoid sinus disease. 2. Undulating nasal septum. 3. No acute intracranial abnormality seen.
== END | disposition home or self-care (01) ==
LOC: RADCTMAIN 12:38
PROVIDERS: ATTEND Internal Medicine Geriatric Medicine
DX: J34.89 Other specified disorders of nose and nasal sinuses (principal); G44.52 New daily persistent headache (NDPH); R22.0 Localized swelling, mass and lump, head
CPT/HCPCS: 70450